=== PATIENT | male | born 1985 | race Two or more races ===

== ENCOUNTER → 2022-12-30 | Emergency (ER) | payer OTHER ==
[~2022-12-30] VITALS: Ht 175.3 cm; Wt 138.8 kg
[~2022-12-30] MED LIST: CORTIZONE 1028 GM; SYNTHROID125 MCG; TESTIM5 GM
== END | disposition left against medical advice (07) ==
LOC: ER 23:06
DX: Z53.21 Procedure and treatment not carried out due to patient leaving prior to being seen by health care provider (principal)